=== PATIENT | female | born 1955 | race American Indian/Alaskan Native ===

== ENCOUNTER 2019-01-14 22:13 | Emergency (ER) | payer OTHER ==
[2019-01-14 22:20] VITALS: TEMP 98; O2SAT 99
--- NOTE | 2019-01-14 23:26 | ED PDOC ---
HPI: Chest Pain Time Seen by Provider: 01/14/19 22:50 Chief Complaint (Nursing): Chest Pain Chief Complaint (Provider): Chest Pain History Per: Patient History/Exam Limitations: no limitations Onset/Duration Of Symptoms: Hrs (x3) Additional Complaint(s): 63 y/o female presents to the ED with chest tightness onset around 7 pm tonight after dinner. Patient states that she ate ravioli for dinner and it ate nothing spicy. Patient admits she didn't have her evening dose of Insulin however states that she is usually compliant with her medications and she is otherwise healthy. Denies shortness of breath, nausea, vomiting, or pain radiating to other parts of her body. Past Medical History Reviewed: Historical Data, Nursing Documentation, Vital Signs Vital Signs: Last Vital Signs Temp 98.0 F 01/14/19 22:18 Pulse 112 H 01/14/19 22:18 Resp 16 01/14/19 22:18 BP 107/92 H 01/14/19 22:18 Pulse Ox 99 01/14/19 22:18 - Medical History PMH: Diabetes, HTN - Family History Family History: States: Unknown Family Hx - Home Medications Home Medications: Ambulatory Orders Medication Instructions Recorded Aspirin [Aspirin EC] 81 mg PO DAILY 12/05/15 Furosemide [Lasix] 40 mg PO DAILY 12/05/15 Glimepiride [amaRYL] 4 mg PO DAILY 12/05/15 Ibuprofen [Motrin] 600 mg PO Q6H PRN 12/05/15 Insulin Human NPH/Reg [humulin 15 units SC BID 12/05/15 70/30 70 U/Ml-30 U/Ml 10 Ml] Losartan/Hydrochlorothiazide 1 tab PO DAILY 12/05/15 [Hyzaar 100-25 Tablet] Lovastatin 40 mg PO DAILY 12/05/15 Metformin HCl [Glucophage] 850 mg PO TID 12/05/15 Metoprolol Succinate XL [Toprol XL] 50 mg PO DAILY 12/05/15 NIFEdipine ER [Nifedipine ER] 60 mg PO DAILY 12/05/15 - Allergies Allergies/Adverse Reactions: Allergies Allergy/AdvReac Type Severity Reaction Status Date / Time No Known Allergies Allergy Verified 01/14/19 22:18 Review of Systems ROS Statement: Except As Marked, All Systems Reviewed And Found Negative Cardiovascular: Positive for: Chest Pain Respiratory: Negative for: Shortness of Breath Gastrointestinal: Negative for: Nausea, Vomiting Physical Exam - Reviewed Nursing Documentation Reviewed: Yes Vital Signs Reviewed: Yes - Physical Exam Appears: Positive for: Well, Non-toxic, No Acute Distress Head Exam: Positive for: ATRAUMATIC, NORMAL INSPECTION, NORMOCEPHALIC Skin: Positive for: Normal Color, Warm, DRY Eye Exam: Positive for: EOMI, Normal appearance, PERRL ENT: Positive for: Normal ENT Inspection Neck: Positive for: Normal, Painless ROM Cardiovascular/Chest: Positive for: Regular Rate, Rhythm, Tachycardia. Negative for: Murmur Respiratory: Positive for: Normal Breath Sounds. Negative for: Respiratory Distress Gastrointestinal/Abdominal: Positive for: Normal Exam, Soft. Negative for: Tenderness Back: Positive for: Normal Inspection Extremity: Positive for: Normal ROM. Negative for: Pedal Edema, Deformity Neurological/Psych: Positive for: Awake, Alert, Normal Tone. Negative for: Motor/Sensory Deficits - Laboratory Results Result Diagrams: 01/15/19 00:28 01/15/19 00:28 - ECG O2 Sat by Pulse Oximetry: 99 (RA) Pulse Ox Interpretation: Normal Medical Decision Making Medical Decision Making: Time: 22:57 MDM: Workup for chest pain * Aspirin for pain * Reassess 02:10 Patient reports symptoms have completely resolved. Will give insulin here. Patient has heart score of 3 (low score.) Will follow up with PMD and cryptographic clerk tomorrow. Return parameters discussed. Scribe Attestation: Documented by Parminder Patel, acting as a scribe for Chanell Rivera MD. Provider Scribe Attestation: All medical record entries made by the Scribe were at my direction and personally dictated by me. I have reviewed the chart and agree that the record accurately reflects my personal performance of the history, physical exam, medical decision making, and the department course for this patient. I have also personally directed, reviewed, and agree with the discharge instructions and disposition. Disposition - Clinical Impression Clinical Impression: Chest pain - Disposition Disposition: Routine/Home Disposition Time: 02:10 Condition: IMPROVED Additional Instructions: Continue to take all home medications as prescribed by primary doctor. Follow up with cryptographic clerk and primary doctors within one week. Return to the emergency department if symptoms worsen or if new symptoms develop. Instructions: Chest Pain That Is Not Caused by the Heart (DC) Forms: [employer] (Upper Sorbian) Print Language: HONG K[place]ER
[2019-01-15 01:26] LABS: BASO # 0.1 K/uL (0.0-0.2); BASO % 0.8 % (0.0-2.0); EOS # 0.2 K/uL (0.0-0.7); EOS % 2.7 % (0.0-4.0); HEMOGLOBIN 10.4 g/dL (12.0-16.0); LYMPH # 2.3 K/uL (1.0-4.3); LYMPH % 31.5 % (20.0-40.0); MEAN CELL VOLUME 85.1 fl (81.0-99.0); MEAN CORPUSCULAR HEMOGLOBIN 27.3 pg (27.0-31.0); MEAN CORPUSCULAR HGB CONC 32.1 g/dL (33.0-37.0); MEAN PLATELET VOLUME 7.9 fl (7.2-11.7); MONO # 0.4 K/uL (0.0-0.8); MONO % 5.7 % (0.0-10.0); NEUT # 4.3 K/uL (1.8-7.0); NEUT % 59.3 % (50.0-75.0); RBC 3.82 Mil/uL (3.80-5.20); WHITE BLOOD COUNT 7.3 K/uL (4.8-10.8)
[2019-01-15 01:39] LABS: ALB/GLOB RATIO 1.2 (1.0-2.1); ALBUMIN 4.2 g/dL (3.5-5.0); CALCIUM 10.1 mg/dL (8.4-10.2)
[2019-01-15 01:51] LABS: TROPONIN I 0.034 ng/mL (0.00-0.120)
[2019-01-15] MEDS ORDERED: Insulin Regular 100 units/ml SC STA (02:07)
[2019-01-15] MEDS ORDERED: Sodium Chloride 0.9% 1,000 ML IV STA (02:08)
[2019-01-15] MEDS ORDERED: Insulin Regular 100 units/ml ONE (02:57)
[2019-01-15 05:32] VITALS: BP 136/80; PULSE 79; RESP 16
--- NOTE | 2019-01-15 09:03 | CARD ---
APPROVED REPORT Date of service: 01/14/2019 EKG Measurement Heart [id number] <Conclusion> Normal sinus rhythm Nonspecific ST and T wave abnormality Abnormal ECG
--- NOTE | 2019-01-15 09:19 | CARD ---
APPROVED REPORT Date of service: 01/15/2019 EKG Measurement Heart [id number] <Conclusion> Normal sinus rhythm Nonspecific ST and T wave abnormality Abnormal ECG
--- NOTE | 2019-01-15 10:56 | RAD ---
Date of service: 01/14/2019 HISTORY: possible admission COMPARISON: 03/19/2013 FINDINGS: LUNGS: No active pulmonary disease. PLEURA: No significant pleural effusion identified, no pneumothorax apparent. CARDIOVASCULAR: No atherosclerotic calcification present No radiographic findings to suggest acute or significant cardiovascular disease. OSSEOUS STRUCTURES: No significant abnormalities. VISUALIZED UPPER ABDOMEN: Normal. OTHER FINDINGS: None. IMPRESSION: No active disease. No significant interval change compared to the prior examination(s).
== END 2019-01-15 03:25 | disposition home or self-care (01) ==
LOC: H.ER 22:13
DX: R07.89 Other chest pain (principal); E11.9 Type 2 diabetes mellitus without complications; I10 Essential (primary) hypertension; Z79.84 Long term (current) use of oral hypoglycemic drugs
CPT/HCPCS: 71045; 80053; 83880; 84484; 85025; 93005; 96372; 96374; 99284; J1885; J7030